=== PATIENT | female | born 1985 | race Caucasian/White ===

== ENCOUNTER 2016-07-12 20:12 | Day surgery (SDC) | payer MEDICAID ==
[~2016-07-12 20:12] MED LIST: ACYCLOVIR400 MG PO; ADVAIR 5001 DISK W/D IH; ADVAIR 50028 BLISTE1 PO; ALBUTEROL2.5 MG/3 M INH; ASPIR 8181 M1 PO; BACTRIM DS TAB1 EAC2 PO; BACTRIM DS TABL1 TAB PO; BRILINTA90 M1 PO; BUPROPION HCL150 M3 PO; BYETTA5 MCG/0.01 SC; CHILDREN'S ASPI81 M1 PO; CLARITIN10 M6 PO; COREG6.25 M1 PO; COZAAR25 M1 PO; CPAP; CUBICIN500 MG/10 IV; DEMADEX20 M1 PO; DEPO-PROVE150 MG/1 M; DICYCLOMINE HCL20 M1 PO; DIPHENHYDRAMINE25 MG PO; FAMOTIDINE20 M1 PO; FAMOTIDINE20 M3 PO; GLUCOPHAGE500 MG PO; INVANZ1 GM IV; KEFLEX500 MG PO; LASIX20 M1 PO; LASIX40 M1 PO; LEVAQUIN750 MG PO; LIPITOR40 M1 PO; LISINOPRIL-HC PO; LOPERAMIDE2 M2 PO; LOTRIMIN AF12 GM TP; MEGESTROL ACETA40 M1 PO; METFORMIN HCL500 M2 PO; METFORMIN PO; MOTRIN800 MG PO; NAPROXEN375 M1 PO; NAPROXEN500 M1 PO; NEURONTIN300 M1 PO; NITROGLYCERIN0.4 M2 SL; NO MEDS; NORCO 5-325 TA1 EACH PO; NORCO 5/325 TAB1 TAB PO; OXYCODONE/APAP PO; PAIN RELIEF500 M4 PO; PAXIL40 M1 PO; PEN-VEE K500 MG PO; PEPCID20 M1 PO; PERCOCET 5-3251 EACH PO; PERCOCET 5MG/AP1 TAB PO; PERCOCET 7.5-31 EAC1 PO; PHENTERMINE H37.5 M2 PO; PLAVIX75 M1 PO; POTASSIUM CHLO10 ME2 PO; POTASSIUM CHLO20 ME3 PO; PRENATAL1 EACH PO; PROVENTIL HFA6.7 G1 INH; SINGULAIR10 M1 PO; SKELAXIN800 M1 PO; SPIRIVA18 MC1 IH; TRAMADOL HCL50 MG PO; TYLENOL #31 TA1 PO; TYLENOL #31 TA2 PO; TYLENOL WITH C1 EACH PO; ULTRAM50 M1 PO; ULTRAM50 MG PO; VICTOZA 2-0.6 MG/0.1 SC; VITAMIN D5000 UNI1 PO; XARELTO15 M1 PO; ZEBETA5 M2 PO; ZESTRIL20 M3 PO; ZESTRIL5 M1 PO; ZOFRAN4 MG PO; ZYRTEC1010 PO
[2016-07-12 22:56] LABS: BASO % 0.1 % (0-2); EOS % 3.1 % (0-7); EOSINOPHIL ABSOLUTE COUNT 0.6 tho/cmm (0.0-0.7); HCT-HEMATOCRIT 41.1 % (34.0-49.0); HGB-HEMOGLOBIN 13.9 gm/dl (12.0-15.5); IMMATURE GRANULOCYTES ABSOLUTE 0.06 tho/cmm (0-0.03); IMMATURE GRANULOCYTES PERCENT 0.3 % (0-0.3); LYMPH % 17.6 % (20-45); LYMPH ABSOLUTE COUNT 3.7 tho/cmm (0.8-4.5); MCH (MEAN CORPUSCULAR HGB) 32.3 pg (28.0-32.0); MCHC MEAN CORPUSCULAR HGB CONC 33.8 % (32.0-36.0); MCV (MEAN CELL VOLUME) 95.4 fl (82.0-96.0); MEAN PLATELET VOLUME 9.9 cmc (9.4-12.4); MONO % 5.6 % (0-12); MONOCYTE ABSOLUTE COUNT 1.2 tho/cmm (0.0-1.2); NEUTROPHIL ABSOLUTE COUNT 15.4 tho/cmm (1.6-8.0); NEUTROPHIL-AUTOMATED 15.4 tho/cmm (1.6-8.0); NEUTROPHILS % 73.3 % (40-80); PLATELET COUNT 375 tho/cmm (150-450); RED BLOOD COUNT 4.31 mil/cmm (4.00-5.20); RED CELL DISTRIBUTION WIDTH 14.1 % (12.4-16.4)
[2016-07-12 23:13] LABS: ALB/GLOB RATIO 0.7 (0.8-2.0); ALBUMIN 3.3 g/dl (3.5-5.0); ALKALINE PHOSPHATASE 79 U/L (33-138); ALT/SGPT 37 U/L (12-78); ANION GAP 15 mmol/L (0-20); AST/SGOT 15 U/L (10-40); BILIRUBIN,TOTAL 0.4 mg/dl (0-1.5); BLOOD UREA NITROGEN 22 mg/dl (6-24); CARBON DIOXIDE-VENOUS 29 mmol/L (22-32); CHLORIDE 97 mmol/l (96-110); CREATININE 1.08 mg/dl (0.50-1.10); GLUCOSE 110 mg/dL (70-110); SODIUM 138 mmol/L (135-145); eGFR VALUE FOR BLACK 79 mL/Min
[2016-07-12 23:17] LABS: POTASSIUM 2.7 mmol/L (3.7-5.1)
[2016-07-13] MEDS ORDERED: COZAAR25 M1 PO (00:35)
[2016-07-13] MEDS ORDERED: GLUCOPHAGE1000 M1 PO ×2 (00:36→00:37)
[2016-07-13] MEDS ORDERED: MAPAP ARTHRITI650 M1 PO (00:36)
[2016-07-13] MEDS ORDERED: BISOPROLOL FUMAR5 M1 PO (00:38)
[2016-07-13] MEDS ORDERED: NEURONTIN600 M1 PO (00:39)
[2016-07-13] MEDS ORDERED: ISOSORBIDE MONO30 M4 PO (00:39)
[2016-07-13] MEDS ORDERED: SINGULAIR10 M1 PO (00:40)
[2016-07-13] MEDS ORDERED: ASPIR 8181 M1 PO (00:46)
[2016-07-13] MEDS ORDERED: MINOCYCLINE HC100 M1 PO (00:47)
[2016-07-13] MEDS ORDERED: XARELTO20 M1 PO (00:47)
[2016-07-13] MEDS ORDERED: PRENATAL-U CAPS1 CAP PO (00:51)
[2016-07-13 08:05] LABS: BASO % 0.2 % (0-2); EOS % 3.2 % (0-7); EOSINOPHIL ABSOLUTE COUNT 0.5 tho/cmm (0.0-0.7); HCT-HEMATOCRIT 37.7 % (34.0-49.0); HGB-HEMOGLOBIN 12.7 gm/dl (12.0-15.5); IMMATURE GRANULOCYTES ABSOLUTE 0.05 tho/cmm (0-0.03); IMMATURE GRANULOCYTES PERCENT 0.3 % (0-0.3); LYMPH % 17.7 % (20-45); LYMPH ABSOLUTE COUNT 2.6 tho/cmm (0.8-4.5); MCH (MEAN CORPUSCULAR HGB) 32.2 pg (28.0-32.0); MCHC MEAN CORPUSCULAR HGB CONC 33.7 % (32.0-36.0); MCV (MEAN CELL VOLUME) 95.7 fl (82.0-96.0); MEAN PLATELET VOLUME 9.8 cmc (9.4-12.4); MONO % 5.3 % (0-12); MONOCYTE ABSOLUTE COUNT 0.8 tho/cmm (0.0-1.2); NEUTROPHIL ABSOLUTE COUNT 10.8 tho/cmm (1.6-8.0); NEUTROPHIL-AUTOMATED 10.8 tho/cmm (1.6-8.0); NEUTROPHILS % 73.3 % (40-80); PLATELET COUNT 324 tho/cmm (150-450); RED BLOOD COUNT 3.94 mil/cmm (4.00-5.20); RED CELL DISTRIBUTION WIDTH 14.4 % (12.4-16.4); WHITE BLOOD COUNT 14.8 tho/cmm (4.0-10.0)
[2016-07-13 11:48] LABS: ANION GAP 14 mmol/L (0-20); BLOOD UREA NITROGEN 21 mg/dl (6-24); CALCIUM 8.6 mg/dl (8.5-10.5); CARBON DIOXIDE-VENOUS 29 mmol/L (22-32); CHLORIDE 101 mmol/l (96-110); CREATININE 0.91 mg/dl (0.50-1.10); GLUCOSE 139 mg/dL (70-110); SODIUM 141 mmol/L (135-145); eGFR VALUE FOR BLACK >90 mL/Min
[2016-07-13 11:50] LABS: POTASSIUM 2.9 mmol/L (3.7-5.1)
[2016-07-14 05:08] LABS: BASO % 0.2 % (0-2); EOS % 3.1 % (0-7); EOSINOPHIL ABSOLUTE COUNT 0.4 tho/cmm (0.0-0.7); HCT-HEMATOCRIT 37.2 % (34.0-49.0); HGB-HEMOGLOBIN 12.2 gm/dl (12.0-15.5); IMMATURE GRANULOCYTES ABSOLUTE 0.02 tho/cmm (0-0.03); IMMATURE GRANULOCYTES PERCENT 0.2 % (0-0.3); LYMPH % 25.7 % (20-45); LYMPH ABSOLUTE COUNT 2.9 tho/cmm (0.8-4.5); MCHC MEAN CORPUSCULAR HGB CONC 32.8 % (32.0-36.0); MCV (MEAN CELL VOLUME) 97.6 fl (82.0-96.0); MEAN PLATELET VOLUME 9.9 cmc (9.4-12.4); MONO % 4.8 % (0-12); MONOCYTE ABSOLUTE COUNT 0.6 tho/cmm (0.0-1.2); NEUTROPHIL ABSOLUTE COUNT 7.6 tho/cmm (1.6-8.0); NEUTROPHIL-AUTOMATED 7.6 tho/cmm (1.6-8.0); PLATELET COUNT 311 tho/cmm (150-450); RED BLOOD COUNT 3.81 mil/cmm (4.00-5.20); RED CELL DISTRIBUTION WIDTH 14.4 % (12.4-16.4); WHITE BLOOD COUNT 11.4 tho/cmm (4.0-10.0)
[2016-07-14 05:16] LABS: ANION GAP 10 mmol/L (0-20); BLOOD UREA NITROGEN 15 mg/dl (6-24); CALCIUM 8.7 mg/dl (8.5-10.5); CARBON DIOXIDE-VENOUS 32 mmol/L (22-32); CHLORIDE 104 mmol/l (96-110); CREATININE 0.77 mg/dl (0.50-1.10); GLUCOSE 143 mg/dL (70-110); SODIUM 143 mmol/L (135-145); eGFR VALUE FOR BLACK >90 mL/Min
[2016-07-14 05:27] LABS: POTASSIUM 2.7 mmol/L (3.7-5.1)
[2016-07-14 05:30] LABS: PROCALCITONIN <0.05 ng/ml (0.05-0.09)
[2016-07-14] MEDS ORDERED: NORCO 5-325 TA1 EACH PO (16:40)
[2016-12-21] MEDS ORDERED: ULTRAM50 M1 PO (21:40)
== END 2016-07-14 17:35 ==
LOC: EDMED 20:12 → CAR1 07-13 00:16 → PACU 07-13 15:54 → CAR1 07-13 17:25
PROVIDERS: Emergency Medicine; Surgery
PROC: 0J9M0ZZ Drainage of Left Upper Leg Subcutaneous Tissue and Fascia, Open Approach (ICD-10-PCS; principal; 2016-07-13)
PROC: 05HF33Z Insertion of Infusion Device into Left Cephalic Vein, Percutaneous Approach (ICD-10-PCS; 2016-07-13)
DX: L02.416 Cutaneous abscess of left lower limb (principal); E11.9 Type 2 diabetes mellitus without complications; J44.9 Chronic obstructive pulmonary disease, unspecified; I11.0 Hypertensive heart disease with heart failure; I50.30 Unspecified diastolic (congestive) heart failure; I25.2 Old myocardial infarction; I25.10 Atherosclerotic heart disease of native coronary artery without angina pectoris; E66.01 Morbid (severe) obesity due to excess calories; R51 Headache; F41.9 Anxiety disorder, unspecified; F32.9 Major depressive disorder, single episode, unspecified; J45.909 Unspecified asthma, uncomplicated; F17.210 Nicotine dependence, cigarettes, uncomplicated; G47.33 Obstructive sleep apnea (adult) (pediatric); E78.5 Hyperlipidemia, unspecified; D72.829 Elevated white blood cell count, unspecified; E87.6 Hypokalemia; Z79.01 Long term (current) use of anticoagulants; Z79.82 Long term (current) use of aspirin; Z79.84 Long term (current) use of oral hypoglycemic drugs; Z79.899 Other long term (current) drug therapy; Z88.1 Allergy status to other antibiotic agents; Z88.2 Allergy status to sulfonamides; Z86.718 Personal history of other venous thrombosis and embolism; Z86.711 Personal history of pulmonary embolism; Z86.14 Personal history of Methicillin resistant Staphylococcus aureus infection; Z90.49 Acquired absence of other specified parts of digestive tract; Z95.5 Presence of coronary angioplasty implant and graft; Z98.890 Other specified postprocedural states
CPT/HCPCS: C1751; G0378; J1170; J1335; J2270; J2405; J3010; J3480; J7030

== ENCOUNTER 2016-08-21 16:13 | Emergency (ER) | payer MEDICAID ==
[~2016-08-21 16:13] MED LIST changes: +BISOPROLOL FUMAR5 M1 PO; +GLUCOPHAGE1000 M1 PO; +ISOSORBIDE MONO30 M4 PO; +MAPAP ARTHRITI650 M1 PO; +MINOCYCLINE HC100 M1 PO; +NEURONTIN600 M1 PO; +PRENATAL-U CAPS1 CAP PO; +XARELTO20 M1 PO
[2016-08-21] MEDS ORDERED: DICYCLOMINE HCL20 M1 PO (17:08)
[2016-08-21] MEDS ORDERED: ULTRAM50 M1 PO (17:09)
[2016-08-21] MEDS ORDERED: PAXIL40 M1 PO (17:11)
[2016-08-21] MEDS ORDERED: HYDROCODON-ACE1 EA17 PO (17:12)
[2016-08-21] MEDS ORDERED: ATIVAN1 M2 PO (17:39)
[2016-12-21] MEDS ORDERED: ULTRAM50 M1 PO (21:40)
== END 2016-08-21 17:54 ==
LOC: EDMED 16:13
DX: F41.0 Panic disorder [episodic paroxysmal anxiety] (principal); E11.9 Type 2 diabetes mellitus without complications; F41.9 Anxiety disorder, unspecified; Z79.899 Other long term (current) drug therapy
CPT/HCPCS: J2060